=== PATIENT | female | born 1990 | race Caucasian/White ===

== ENCOUNTER 2020-03-05 08:22 | Outpatient (REF) | payer OTHER, SELFPAY ==
[2020-03-05 11:14] LABS: MANUAL DIFF FLAG NO
[2020-03-05 11:21] LABS: Basophils Percent Auto 0.4 % (0-2); Eosinophils Absolute Auto 0.1 X10*3/uL (0.0-0.4); Eosinophils Percent Auto 1.5 % (0-4); Hemoglobin 14.2 g/dl (12.0-16.0); Imm Gran Abs Auto 0.01 X10*3/uL (0.00-0.03); Imm Gran Pct Auto 0.2 % (0.0-0.4); Lymphocytes Absolute Auto 2.2 X10*3/uL (1.2-4.9); Lymphocytes Percent Auto 39.4 % (20-40); Mean Corpuscular HGB Conc 32.3 g/dl (31.0-35.0); Mean Corpuscular Hemoglobin 28.5 pg (27.0-33.0); Mean Corpuscular Volume 88.2 fL (80-98); Monocytes Absolute Auto 0.4 X10*3/uL (0.1-1.2); Neutrophils Absolute Auto 2.8 X10*3/uL (2.0-8.3); Neutrophils Percent Auto 50.5 % (45-73); Platelet Count 344 X10*3/uL (160-400); Red Blood Count 4.99 X10*6/uL (4.20-5.50); Red Cell Distribution Width 11.9 % (11.0-16.0); White Blood Count 5.5 X10*3/uL (4.8-10.8)
[2020-03-05 11:46] LABS: Anion Gap 12 (12-20); Blood Urea Nitrogen 13 mg/dL (9-16); Calcium 9.1 mg/dL (8.4-10.2); Carbon Dioxide 28 mmol/L (22-29); Chloride 105 mmol/L (96-108); Cholesterol 232 mg/dL; Estimated Glomerular Filt Rate > 60; Glucose Fasting 79 mg/dL (60-99); HDL Cholesterol 53 mg/dL; LDL Cholesterol Calculated 155 mg/dl; Potassium 4.2 mmol/l (3.3-5.1); Sodium 141 mmol/L (135-145); Triglycerides 120 mg/dL
[2020-03-05 12:08] LABS: TSH reflex Free T4 5.13 mIU/mL (0.32-4.0)
== END 2020-03-05 08:23 | disposition home or self-care (01) ==
LOC: HO.HMGCLDS 08:22
PROVIDERS: PCP Internal Medicine; Visit Provider Internal Medicine
DX: E66.9 Obesity, unspecified (principal)
CPT/HCPCS: 36415; 80048; 80061; 84439; 84443; 85025

== ENCOUNTER 2020-05-12 15:18 | Outpatient (REF) | payer OTHER, SELFPAY ==
[2020-05-12 17:18] LABS: TSH reflex Free T4 3.02 uIU/mL (0.32-4.0)
== END 2020-05-12 15:19 | disposition home or self-care (01) ==
LOC: HO.HMGCLDS 15:18
PROVIDERS: PCP Internal Medicine; Visit Provider Internal Medicine
DX: R79.89 Other specified abnormal findings of blood chemistry (principal)
CPT/HCPCS: 36415; 84443

== ENCOUNTER 2021-01-05 | Outpatient (REF) | payer BC, OTHER, SELFPAY ==
[2021-01-06 13:34] LABS: Influenza A PCR NEGATIVE (Negative); Influenza B PCR NEGATIVE (Negative); Resp Syncy Virus RNA Qual PCR NEGATIVE (Negative); SARS COV2 PCR INHOUSE NEGATIVE (Negative)
== END 2021-01-05 00:01 | disposition home or self-care (01) ==
LOC: HO.LNP
PROVIDERS: Visit Provider Internal Medicine
DX: R43.9 Unspecified disturbances of smell and taste (principal); Z20.822 Contact with and (suspected) exposure to COVID-19
CPT/HCPCS: 0241U

== ENCOUNTER 2021-05-14 11:26 | Outpatient (REF) | payer BC, OTHER, SELFPAY ==
[2021-05-14 13:39] LABS: MANUAL DIFF FLAG NO
[2021-05-14 13:49] LABS: Basophils Percent Auto 0.3 % (0-2); Eosinophils Percent Auto 0.5 % (0-4); Hematocrit 42.3 % (37.0-47.0); Imm Gran Abs Auto 0.01 X10*3/uL (0.00-0.03); Imm Gran Pct Auto 0.1 % (0.0-0.4); Lymphocytes Absolute Auto 1.7 X10*3/uL (1.2-4.9); Lymphocytes Percent Auto 21.8 % (20-40); Mean Corpuscular HGB Conc 33.1 g/dl (31.0-35.0); Mean Corpuscular Hemoglobin 28.9 pg (27.0-33.0); Mean Corpuscular Volume 87.4 fL (80.0-98.0); Mean Platelet Volume 9.3 fL (9.4-12.3); Monocytes Absolute Auto 0.5 X10*3/uL (0.1-1.2); Monocytes Percent Auto 6.3 % (2-11); Neutrophils Absolute Auto 5.5 x10*3/uL (2.0-8.3); Platelet Count 335 X10*3/uL (160-400); Red Blood Count 4.84 X10*6/uL (4.20-5.50); Red Cell Distribution Width 11.9 % (11.0-16.0); White Blood Count 7.8 X10*3/uL (4.8-10.8)
[2021-05-14 14:03] LABS: Alanine Aminotransferase 16 U/L (0-31); Albumin Level 4.2 g/dL (3.5-5.0); Alkaline Phosphatase 62 U/L (39-117); Anion Gap 9 (12-20); Aspartate Amino Transferase 20 U/L (5-31); Bilirubin Total 0.6 mg/dL (0.0-1.0); Blood Urea Nitrogen 10 mg/dL (9-16); Calcium 9.6 mg/dL (8.4-10.2); Carbon Dioxide 30 mmol/L (22-29); Chloride 104 mmol/L (96-108); Estimated Glomerular Filt Rate > 60; Glucose Random 80 mg/dL (60-115); Potassium 4.3 mmol/L (3.3-5.1); Sodium 139 mmol/L (135-145); Total Protein 6.7 g/dL (6.5-8.0)
[2021-05-14 14:25] LABS: TSH reflex Free T4 2.66 uIU/mL (0.32-4.0)
[2021-05-15 16:20] LABS: LDL Cholesterol Direct 131 mg/dL (<100)
== END 2021-05-14 11:27 | disposition home or self-care (01) ==
LOC: HO.HMGCLDS 11:26
PROVIDERS: Visit Provider Internal Medicine
DX: Z00.01 Encounter for general adult medical examination with abnormal findings (principal); E66.09 Other obesity due to excess calories
CPT/HCPCS: 36415; 80053; 83721; 84443; 85025

== ENCOUNTER 2021-11-26 10:36 | Outpatient (REF) | payer BC, MEDICAID, SELFPAY ==
[2021-11-26 11:25] LABS: Binax Internal Control QC Valid; Binax Now Covid-19 Ag Negative (Negative); Binax Performed by: HO.BONILM
== END 2021-11-26 10:37 | disposition home or self-care (01) ==
LOC: HO.HMGCLDS 10:36
PROVIDERS: PCP Internal Medicine; Visit Provider Emergency Medicine
DX: Z20.822 Contact with and (suspected) exposure to COVID-19 (principal); J06.9 Acute upper respiratory infection, unspecified
CPT/HCPCS: 87811; C9803

== ENCOUNTER 2022-05-21 08:00 | Outpatient (REF) | payer BC, SELFPAY ==
[2022-05-21 11:09] LABS: MANUAL DIFF FLAG NO
[2022-05-21 11:16] LABS: Basophils Percent Auto 0.4 % (0-2); Eosinophils Absolute Auto 0.1 X10*3/uL (0.0-0.4); Eosinophils Percent Auto 1.3 % (0-4); Hematocrit 42.6 % (37.0-47.0); Hemoglobin 14.2 g/dl (12.0-16.0); Imm Gran Abs Auto 0.01 X10*3/uL (0.00-0.03); Imm Gran Pct Auto 0.2 % (0.0-0.4); Lymphocytes Absolute Auto 1.7 X10*3/uL (1.2-4.9); Lymphocytes Percent Auto 30.7 % (20-40); Mean Corpuscular HGB Conc 33.3 g/dl (31.0-35.0); Mean Corpuscular Hemoglobin 28.5 pg (27.0-33.0); Mean Corpuscular Volume 85.5 fL (80.0-98.0); Mean Platelet Volume 9.1 fL (9.4-12.3); Monocytes Absolute Auto 0.4 X10*3/uL (0.1-1.2); Monocytes Percent Auto 7.2 % (2-11); Neutrophils Absolute Auto 3.3 x10*3/uL (2.0-8.3); Neutrophils Percent Auto 60.2 % (45-73); Platelet Count 307 X10*3/uL (160-400); Red Blood Count 4.98 X10*6/uL (4.20-5.50); White Blood Count 5.5 X10*3/uL (4.8-10.8)
[2022-05-21 11:48] LABS: Alanine Aminotransferase 22 U/L (0-31); Albumin Level 4.1 g/dL (3.5-5.0); Alkaline Phosphatase 62 U/L (39-117); Anion Gap 11 (12-20); Aspartate Amino Transferase 20 U/L (5-31); Bilirubin Total 0.7 mg/dL (0.0-1.0); Blood Urea Nitrogen 9 mg/dL (9-16); Calcium 9.3 mg/dL (8.4-10.2); Carbon Dioxide 27 mmol/L (22-29); Chloride 106 mmol/L (96-108); Cholesterol 206 mg/dL; Estimated Glomerular Filt Rate > 60; Glucose Fasting 80 mg/dL (60-99); HDL Cholesterol 58 mg/dL; LDL Cholesterol Calculated 136 mg/dl; Potassium 4.4 mmol/L (3.3-5.1); Sodium 140 mmol/L (135-145); TSH reflex Free T4 7.32 uIU/mL (0.32-4.0); Total Protein 6.3 g/dL (6.5-8.0); Triglycerides 61 mg/dL
[2022-05-21 12:30] LABS: Free T4 (Free Thyroxine) 0.74 ng/dL (0.71-1.85)
== END 2022-05-21 08:01 | disposition home or self-care (01) ==
LOC: HO.HMGCLDS 08:00
PROVIDERS: PCP Internal Medicine; Visit Provider Internal Medicine
DX: Z00.01 Encounter for general adult medical examination with abnormal findings (principal); R07.89 Other chest pain; F43.9 Reaction to severe stress, unspecified; E66.09 Other obesity due to excess calories; R94.6 Abnormal results of thyroid function studies
CPT/HCPCS: 36415; 80053; 80061; 84439; 84443; 85025

== ENCOUNTER 2022-05-28 07:58 | Outpatient (REF) | payer BC, SELFPAY ==
[2022-05-28 11:52] LABS: TSH reflex Free T4 7.75 uIU/mL (0.32-4.0)
[2022-05-28 12:38] LABS: Free T4 (Free Thyroxine) 0.77 ng/dL (0.71-1.85)
== END 2022-05-28 07:59 | disposition home or self-care (01) ==
LOC: HO.HMGCLDS 07:58
PROVIDERS: PCP Internal Medicine; Visit Provider Internal Medicine
DX: R79.89 Other specified abnormal findings of blood chemistry (principal); R94.6 Abnormal results of thyroid function studies
CPT/HCPCS: 36415; 84439; 84443

== ENCOUNTER 2022-06-07 13:01 | Outpatient (REF) | payer BC, SELFPAY ==
--- NOTE | ~2022-06-07 | US_ITS ---
EXAMINATION: US THYROID CLINICAL INFORMATION: High TSH level. COMPARISON: None available. TECHNIQUE: Linear transducer grayscale and color Doppler examination with attention to the region of the thyroid. FINDINGS: SIZE: Measurements of the thyroid lobes and nodules are given in sagittal, anteroposterior and transverse dimensions respectively. Right Thyroid Lobe: 5.3 x 1.8 x 1.7 cm, volume 8.5 mL. Parenchyma: The gland echotexture is heterogeneous. Thyroid vascularity is normal. Left Thyroid Lobe: 3.4 x 1.3 x 1.3 cm, volume 3.0 mL. Parenchyma: The gland echotexture is heterogeneous. Thyroid vascularity is increased. Isthmus: 0.4 cm in maximum AP dimension. No focal thyroid nodule is seen. NODES: No lymphadenopathy is seen in the tissue surrounding the thyroid gland. US/US thyroid IMPRESSION: Heterogeneous thyroid gland without enlargement. No nodules seen. ACR TI-RADS RECOMMENDATION REFERENCE: Ultrasound-guided fine-needle aspiration, followup ultrasound, no further follow up. * TR1 (0 point) and TR2 (2 points): No FNA or follow up. * TR3 (3 points): FNA if more than or equal to 2.5 cm in maximum dimension, followup ultrasound in 1, 3 and 5 years if 1.5 to 2.4 cm in maximum dimension. * TR4 (4-6 points): FNA if more than or equal to 1.5 cm in maximum dimension, followup ultrasound in 1, 2, 3 and 5 years if 1 to 1.4 cm in maximum dimension. * TR5 (more than or equal to 7 points): FNA if more than or equal to 1 cm in maximum dimension, followup ultrasound every year for 5 years if 0.5 to 0.9 cm in maximum dimension. * TR3, TR4 or TR5 nodules that are below the size threshold for followup receive no follow up.
== END 2022-06-07 13:02 | disposition home or self-care (01) ==
LOC: HO.HMGCX 13:01
PROVIDERS: PCP Internal Medicine; Visit Provider Internal Medicine
DX: R79.89 Other specified abnormal findings of blood chemistry (principal)
CPT/HCPCS: 76536

== ENCOUNTER 2022-07-30 07:37 | Outpatient (REF) | payer BC, MEDICAID, SELFPAY ==
[2022-07-30 11:18] LABS: TSH reflex Free T4 2.99 uIU/mL (0.32-4.0)
[2022-08-02 17:44] LABS: Thyroglobulin Antibodies <1 IU/mL (< or = 1)
== END 2022-07-30 07:38 | disposition home or self-care (01) ==
LOC: HO.HMGCLDS 07:37
PROVIDERS: PCP Internal Medicine; Visit Provider Internal Medicine
DX: R94.6 Abnormal results of thyroid function studies (principal)
CPT/HCPCS: 36415; 84443; 86800

== ENCOUNTER 2022-12-01 08:16 | Outpatient (AMB) | payer BC, MEDICAID, SELFPAY ==
--- NOTE | 2022-12-01 08:15 | A.OFFPC_ITS ---
Intake Visit Reasons: Follow Up Med~ Allergies cefaclor [From [facility]] Allergy (Intermediate, Verified 12/01/22 08:15) DIARRHEA Medication List - Last Reconciled 12/01/22 by Sarah Geiger MD acetaminophen (Tylenol) liquid cholecalciferol (vitamin D3) (Vitamin D3) 25 mcg PO DAILY 30 days levothyroxine (Synthroid) 50 mcg PO DAILY [id number]-gnf-gcd C-herb no.124 (Airborne (ascorbic acid)) PO DAILY multivitamin (Daily Multi-Vitamin tablet) 1 tab PO DAILY [id number] 334-1.7 mg (Airborne (ascorbate sodium)) tabs PO Tobacco use date assessed: 12/01/22 Dental Screening Dental Screen Date: 12/01/22 Did you have a dental visit in the last 12 months?: No Did you have a dental problem in the last 6 months where you did not have access to dental care?: No Was dental information given to patient?: Patient has dentist HPI Follow Up Med~ HPI Details Patient is 32-year-old female this is a telemedicine video conference Patient was last seen May this year, she has hypothyroidism She called us that she feels medication is causing nausea. Patient tells me that when she takes a medication in the morning with the bit of water she feels nauseous for her an hour. She also have GERD and is taking no medication. Patient says that she sometimes also feel dyspepsia. Has been feeling depressed lately, feeling tired fatigued have no will to do anything. Patient is seeing therapist but does not feel like talking to therapist as well. She does not want to take any medication, patient says that she feels she will be all right. I have sent omeprazole for the patient she is to start taking that 1 at night 1 empty stomach. She is also due for labs, I will be checking CBC metabolic profile TSH, vitamin- D B12 level. For the management after the lab report. Patient says that she is losing her insurance in 2 days. She will let me know when she have a new insurance so we can set up a follow-up appointment. [facility] Medical History Obesity Surgical History History of lumpectomy Family History Father HTN (hypertension) Asthma Mother No problems noted. Maternal Grandfather Cancer Other Substance use disorder Social History Housing: House Alcohol intake: never Patient Tobacco Use Status: Never used Tobacco e-Cigarette/Vaping Use: Never Used Second Hand Smoke Exposure: No Current occupational status: employed Cognitive needs: No Hearing needs: No Vision needs: No Questionnaire Thrive Questionnaire Date Thrive assessed: 05/20/22 AUDIT C Alcohol Use Questionnaire (AUDIT-C) 1. How often do you have a drink containing alcohol?: Never 3. How often do you have six or more drinks on one occasion?: Never Total Score: 0 Score Reviewed/Action Taken: Yes ALEX-7 AMB Questionnaire ALEX-7 Date ALEX - 7 assessed: 05/20/22 Source: Developed by Drs. Juvenal Suarez, Ofelia Fuentes, Simba Powers and colleagues, with an educational harika from [employer]. Review of Systems Const Denies chills and Denies fever(s) ENT Denies epistaxis and Denies nasal discharge Card Denies chest pain Resp Denies chest congestion, Denies cough and Denies hemoptysis GI Denies diarrhea Skin/Breast Denies rash Neuro Reports no additional complaints Psych Reports no additional complaints Endo Reports no additional complaints Physical exam (Primary Care) Tobacco/Smoking Status: Tobacco use Status Tobacco use date assessed 12/01/22 12/01/22 08:16 Patient Tobacco Use Status Never used Tobacco 12/01/22 08:16 e-Cigarette/Vaping Use Never Used 12/01/22 08:16 Thrive Assessment: Date of Thrive Assessment Date Thrive assessed 05/20/22 12/01/22 08:16 Telehealth Telehealth Location of provider rendering services: practice address Location of patient: address on file Patient Identification confirmed using: Name, : Yes Telehealth method: video Patient verbally consented to treatment: Yes Patient verbally consented to billing insurance company: Yes Patient informed of any privacy concerns related to visit: Yes Assessment and Plan Assessment & Plan (1) Other specified hypothyroidism: Code(s): E03.8 - Other specified hypothyroidism (2) Tired: Code(s): R53.83 - Other fatigue (3) Fatigue: Code(s): R53.83 - Other fatigue Qualifiers: Fatigue type: due to depression Qualified Code(s): F32.A - Depression, unspecified; R53.83 - Other fatigue (4) Major depressive disorder, recurrent, mild: Code(s): F33.0 - Major depressive disorder, recurrent, mild Plan Patient is 32-year-old female this is a telemedicine video conference Patient was last seen May this year, she has hypothyroidism She called us that she feels medication is causing nausea. Patient tells me that when she takes a medication in the morning with the bit of water she feels nauseous for her an hour. She also have GERD and is taking no medication. Patient says that she sometimes also feel dyspepsia. Has been feeling depressed lately, feeling tired fatigued have no will to do anything. Patient is seeing therapist but does not feel like talking to therapist as well. She does not want to take any medication, patient says that she feels she will be all right. I have sent omeprazole for the patient she is to start taking that 1 at night 1 empty stomach. She is also due for labs, I will be checking CBC metabolic profile TSH, vitamin- D B12 level. For the management after the lab report. Patient says that she is losing her insurance in 2 days. She will let me know when she have a new insurance so we can set up a follow-up appointment. Orders: Orders Complete Blood Count Auto Diff Today E03.8 - Other specified hypothyroidism, F33.0 - Major depressive disorder, recurrent, mild, R53.83 - Other fatigue Comprehensive Met. Panel Today E03.8 - Other specified hypothyroidism, F33.0 - Major depressive disorder, recurrent, mild, R53.83 - Other fatigue TSH reflex Free T4 Today E03.8 - Other specified hypothyroidism, F33.0 - Major depressive disorder, recurrent, mild, R53.83 - Other fatigue Vitamin B12 Today E03.8 - Other specified hypothyroidism, F33.0 - Major depressive disorder, recurrent, mild, R53.83 - Other fatigue Vitamin D 25-OH (D2 and D3) Today E03.8 - Other specified hypothyroidism, F33.0 - Major depressive disorder, recurrent, mild, R53.83 - Other fatigue Coding Level of Care Code Tele Est Pt Level 4 (84054) Diagnoses Other specified hypothyroidism E03.8 Tired R53.83 Fatigue due to depression F32.A; R53.83 Fatigue type: due to depression Major depressive disorder, recurrent, mild F33.0 Time Spent (min) 30 Comment 5 min prep, 15 with patient, 10 charting, labs
== END 2022-12-01 10:22 | disposition home or self-care (01) ==
LOC: HO.HMGC 08:16
PROVIDERS: PCP Internal Medicine; Visit Provider Internal Medicine
DX: E03.8 Other specified hypothyroidism (principal); R53.83 Other fatigue; F33.0 Major depressive disorder, recurrent, mild
CPT/HCPCS: 99214

== ENCOUNTER 2022-12-01 09:43 | Outpatient (REF) | payer BC, MEDICAID, SELFPAY ==
[2022-12-01 13:21] LABS: MANUAL DIFF FLAG NO
[2022-12-01 13:30] LABS: Basophils Percent Auto 0.6 % (0-2); Eosinophils Absolute Auto 0.1 X10*3/uL (0.0-0.4); Eosinophils Percent Auto 0.9 % (0-4); Hematocrit 44.6 % (37.0-47.0); Hemoglobin 14.7 g/dl (12.0-16.0); Imm Gran Abs Auto 0.01 X10*3/uL (0.00-0.03); Imm Gran Pct Auto 0.2 % (0.0-0.4); Lymphocytes Absolute Auto 1.6 X10*3/uL (1.2-4.9); Lymphocytes Percent Auto 29.6 % (20-40); Mean Corpuscular Hemoglobin 28.8 pg (27.0-33.0); Mean Corpuscular Volume 87.5 fL (80.0-98.0); Mean Platelet Volume 9.2 fL (9.4-12.3); Monocytes Absolute Auto 0.4 X10*3/uL (0.1-1.2); Monocytes Percent Auto 7.1 % (2-11); Neutrophils Absolute Auto 3.3 x10*3/uL (2.0-8.3); Neutrophils Percent Auto 61.6 % (45-73); Platelet Count 339 X10*3/uL (160-400); Red Cell Distribution Width 11.9 % (11.0-16.0); White Blood Count 5.4 X10*3/uL (4.8-10.8)
[2022-12-01 14:06] LABS: Alanine Aminotransferase 20 U/L (0-31); Albumin Level 4.4 g/dL (3.5-5.0); Alkaline Phosphatase 56 U/L (39-117); Anion Gap 14 (12-20); Aspartate Amino Transferase 21 U/L (5-31); Bilirubin Total 0.5 mg/dL (0.0-1.0); Blood Urea Nitrogen 9 mg/dL (9-16); Carbon Dioxide 27 mmol/L (22-29); Chloride 105 mmol/L (96-108); Estimated Glomerular Filt Rate > 60; Glucose Random 75 mg/dL (60-115); Sodium 142 mmol/L (135-145); Total Protein 7.3 g/dL (6.5-8.0)
[2022-12-01 14:23] LABS: TSH reflex Free T4 2.18 uIU/mL (0.32-4.0)
[2022-12-01 14:26] LABS: Vitamin B12 449 pg/mL (200-900)
[2022-12-06 14:24] LABS: Vitamin D 25-OH, D2 <4 ng/mL; Vitamin D 25-OH, D3 33 ng/mL; Vitamin D 25-OH, Total 33 ng/mL (30-100)
== END 2022-12-01 09:44 | disposition home or self-care (01) ==
LOC: HO.HMGCLDS 09:43
PROVIDERS: PCP Internal Medicine; Visit Provider Internal Medicine
DX: E03.8 Other specified hypothyroidism (principal); F33.0 Major depressive disorder, recurrent, mild
CPT/HCPCS: 36415; 80053; 82306; 82607; 84443; 85025

== ENCOUNTER 2023-05-26 09:49 | Outpatient (AMB) | payer OTHER, SELFPAY ==
--- NOTE | 2023-05-26 09:51 | MHC.PC.OV ---
Vital Signs 05/26/23 09:55 Height 5 ft 1 in Weight 194 lb 2 oz BMI 36.7 BP 122/78 Blood Pressure Location Lt brachial Position Sitting Pulse 98 Pulse Source Pulse Oximeter Pulse Oximetry (%) 98 Oxygen Delivery Method Room Air Intake Visit Reasons: Annual Physical Is last menstrual period known: Yes Last menstrual period: 05/08/23 Allergies cefaclor [From CECL[facility]] Allergy (Intermediate, Verified 05/26/23 09:51) DIARRHEA Medication List - Last Reconciled 05/26/23 by Sarah Geiger MD acetaminophen (Tylenol) liquid cholecalciferol (vitamin D3) (Vitamin D3) 25 mcg PO DAILY levothyroxine (Synthroid) 50 mcg PO DAILY [id number]-wox-dww C-herb no.124 (Airborne (ascorbic acid)) PO DAILY multivitamin (Daily Multi-Vitamin tablet) 1 tab PO DAILY rn-to-plgF-rxiWr-Qto-Crz-hc124 334-1.7 mg (Airborne (ascorbate sodium)) tabs PO Tobacco use date assessed: 05/26/23 Dental Screening Dental Screen Date: 05/26/23 Did you have a dental visit in the last 12 months?: Yes Did you have a dental problem in the last 6 months where you did not have access to dental care?: No Was dental information given to patient?: Patient has dentist HPI Annual Physical HPI Details Patient is a 32-year-old female came in for physical examination Patient is complaining of pain both side midline, she says that mattress is very old which was handed to from grandparent, she has a suspicion that it is because of that Discomfort is only at night when she is sleeping sometimes wakes her up from sleep. During the day she is fine No family history of kidney stone Omeprazole script sent that she is using for GERD Patient is also on 50 mcg of levothyroxine, she is due for labs order placed to be done fasting BMI is elevated need to lose weight Patient have OBGYN Pap smears and breast exam through them. Follow-up 1 year for physical exam [facility] Medical History Obesity Surgical History History of lumpectomy Family History Father HTN (hypertension) Asthma Mother No problems noted. Maternal Grandfather Cancer Other Substance use disorder Social History Housing: House Alcohol intake: never Patient Tobacco Use Status: Never used Tobacco e-Cigarette/Vaping Use: Never Used Second Hand Smoke Exposure: No Current occupational status: employed Cognitive needs: No Hearing needs: No Vision needs: No Female Reproductive History Menstrual Date of last menstrual period: 05/08/23 Questionnaire PHQ-9 Over the last 2 weeks, how often have you been bothered by any of the following problems? 1. Little interest or pleasure in doing things: not at all 2. Feeling down, depressed, or hopeless: several days 3. Trouble falling or staying asleep, or sleeping too much: not at all 4. Feeling tired or having little energy: several days 5. Poor appetite or overeating: several days 6. Feeling bad about yourself - or that you are a failure or have let yourself or your family down: not at all 7. Trouble concentrating on things, such as reading the newspaper or watching television: not at all 8. Moving or speaking so slowly that other people could have noticed. Or the opposite - being so fidgety or restless that you have been moving around a lot more than usual: not at all 9. Thoughts that you would be better off or of hurting yourself in some way: not at all Total score: 3 Depression Screening Interpretation: Negative Depression Screening Done: Yes 46394 - PHQ-9 Billing: Yes Source: Developed by Drs. Juvenal Suarez, Ofelia Fuentes, Simba Powers and colleagues, with an educational harika from [employer]. Thrive Questionnaire Date Thrive assessed: 05/20/22 I am a: Patient What is your living situation today?: I have a steady place to live Within the past 12 months, did the food you bought not last and you didn't have the money to get more?: Never true Within the past 12 months, did you worry whether your food would run out before you got money to buy more?: Never true Please select the resources that you would like help with: Education THRIVE Score: 0 AUDIT C Alcohol Use Questionnaire (AUDIT-C) 1. How often do you have a drink containing alcohol?: Monthly or less 2. How many drinks containing alcohol do you have on a typical day when you are drinking?: 1 or 2 3. How often do you have six or more drinks on one occasion?: Never Total Score: 1 ALEX-7 AMB Questionnaire ALEX-7 Date ALEX - 7 assessed: 05/20/22 Feeling nervous, anxious, or on edge: 1 = Several days Not being able to stop or control worryin = Nearly every day Worrying too much about different things: 1 = Several days Trouble relaxin = Several days Being so restless that it is hard to sit still: 0 = Not at all Becoming easily annoyed or irritable: 1 = Several days Feeling afraid as if something awful might happen: 1 = Several days Total ALEX-7 score (0-4 normal; 5-9 mild; 10-14 moderate; 15-21 severe): 8 Source: Developed by Drs. Juvenal Suarez, Ofelia Fuentes, Simba Powers and colleagues, with an educational harika from [employer]. ALEX-7 Assessment Billing ALEX-7 Assessment Tool: ALEX-7 Assessment 82345 (Behavioral health coordinator to follow up) Review of Systems Const Denies chills, Denies fever(s) and Denies headache(s) Eyes Denies blurry vision ENT Denies headache(s), Denies nasal discharge, Denies nasal obstruction, Denies odynophagia and Denies sinus pain Card Denies chest pain at rest and Denies chest pain with activity Resp Denies cough and Denies hemoptysis GI Denies diarrhea, Denies odynophagia, Denies vomiting and Denies hematemesis Reports as per HPI Musc Denies abnormal gait Skin/Breast Reports as per HPI Neuro Denies Neuro-related abnormal movements, Denies Abnormal speech present, Denies abnormal gait, Denies headache(s) and Denies Sensory deficit (Neuro) Psych Denies mood swings and Denies paranoia Endo Reports as per HPI Joseph/Lymph Reports as per HPI Aller/Immun Reports as per HPI Physical exam (Primary Care) Vital Signs: Last Vital Signs Pulse 98 05/26/23 09:55 BP 122/78 05/26/23 09:55 Pulse Ox 98 05/26/23 09:55 Oxygen Delivery Method Room Air 05/26/23 09:55 BMI result Body Mass Index 36.7 Tobacco/Smoking Status: Tobacco use Status Tobacco use date assessed 05/26/23 05/26/23 09:53 Patient Tobacco Use Status Never used Tobacco 05/26/23 09:53 e-Cigarette/Vaping Use Never Used 05/26/23 09:53 Depression Screening Interpretation: Negative Thrive Assessment: Date of Thrive Assessment Date Thrive assessed 05/20/22 05/26/23 09:53 Const General: cooperative, comfortable and no acute distress Orientation/consciousness: patient oriented x3 HENMT Head: Yes normocephalic and Yes atraumatic Eyes General: appearance normal, both eyes and all related structures Pupils: Equal, round and reactive pupils present EOM: EOMs intact bilaterally Neck Neck: Yes supple and No lymphadenopathy Thyroid: Thyroid normal Lymphatic: no lymphadenopathy noted Resp Effort & Inspection: normal respiratory effort and able to speak in complete sentences Auscultation: clear to auscultation bilaterally Cardio Heart sounds: S1 normal heart sound present and S2 normal heart sound present GI Palpation (GI): Soft to palpation and nontender Auscultation: normal bowel sounds General: Yes no CVA tenderness Back/Spine/Pelvis Back: no CVA tenderness Skin General skin exam: elasticity normal and turgor normal Neuro General: patient oriented x3 and gait normal Cranial nerves: Yes Equal, round and reactive pupils present Speech: No Abnormal speech present Sensory Exam: No Sensory deficit (Neuro) Coordination: tandem gait normal and Romberg test negative Extrem General: Yes normal exam except as noted and No edema Assessment and Plan Assessment & Plan (1) Encounter for general adult medical examination with abnormal findings: Code(s): Z00.01 - Encounter for general adult medical examination with abnormal findings (2) Obesity due to excess calories: Code(s): E66.09 - Other obesity due to excess calories Qualifiers: Body mass index: BMI 36.0-36.9 Obesity classification: adult class 2 (BMI 35 - 39.9) Serious obesity comorbidity presence: without serious comorbidity Qualified Code(s): E66.09 - Other obesity due to excess calories; Z68.36 - Body mass index [BMI] 36.0-36.9, adult (3) Other specified hypothyroidism: Code(s): E03.8 - Other specified hypothyroidism Plan Patient is a 32-year-old female came in for physical examination Patient is complaining of pain both side midline, she says that mattress is very old which was handed to from grandparent, she has a suspicion that it is because of that Discomfort is only at night when she is sleeping sometimes wakes her up from sleep. During the day she is fine No family history of kidney stone Omeprazole script sent that she is using for GERD Patient is also on 50 mcg of levothyroxine, she is due for labs order placed to be done fasting BMI is elevated need to lose weight Patient have OBGYN Pap smears and breast exam through them. Follow-up 1 year for physical exam Orders: Orders Complete Blood Count Auto Diff Today E03.8 - Other specified hypothyroidism, E66.09 - Other obesity due to excess calories, Z00.01 - Encounter for general adult medical examination with abnormal findings TSH reflex Free T4 Today E03.8 - Other specified hypothyroidism, E66.09 - Other obesity due to excess calories, Z00.01 - Encounter for general adult medical examination with abnormal findings Comprehensive [place]. Panel Fast Today E03.8 - Other specified hypothyroidism, E66.09 - Other obesity due to excess calories, Z00.01 - Encounter for general adult medical examination with abnormal findings Lipid Panel Today E03.8 - Other specified hypothyroidism, E66.09 - Other obesity due to excess calories, Z00.01 - Encounter for general adult medical examination with abnormal findings UA CC w/rflx Micro + Cult Today Z00.01 - Encounter for general adult medical examination with abnormal findings Medications: New omeprazole 20 mg PO DAILY 90 caps 1RF Refilled levothyroxine (Synthroid) 50 mcg PO DAILY 90 tabs 3RF Coding Level of Care Code Est Pt Prev Care 18-39y(98439) Diagnoses Encounter for general adult medical examination with abnormal findings Z00.01 Class 2 obesity due to excess calories without serious comorbidity with body mass index (BMI) of 36.0 to 36.9 in adult E66.09; Z68.36 Body mass index: BMI 36.0-36.9 Obesity classification: adult class 2 (BMI 35 - 39.9) Serious obesity comorbidity presence: without serious comorbidity Other specified hypothyroidism E03.8 Additional Codes ALEX-7 Assessment Billing - ALEX-7 Assessment Tool: ALEX-7 Assessment [id number] ([id number])
[2023-05-26 09:55] VITALS: BP 122/78; PULSE 98; O2SAT 98; BMI 36.7
== END 2023-05-26 10:11 | disposition home or self-care (01) ==
PROVIDERS: Visit Provider Internal Medicine
DX: Z00.01 Encounter for general adult medical examination with abnormal findings (principal); E66.09 Other obesity due to excess calories; Z68.36 Body mass index [BMI] 36.0-36.9, adult; E03.8 Other specified hypothyroidism
CPT/HCPCS: 99395

== ENCOUNTER 2023-05-27 07:32 | Outpatient (REF) | payer OTHER, SELFPAY ==
[2023-05-27 11:12] LABS: MANUAL DIFF FLAG NO
[2023-05-27 11:23] LABS: Basophils Percent Auto 0.3 % (0-2); Eosinophils Absolute Auto 0.1 X10*3/uL (0.0-0.4); Eosinophils Percent Auto 1.4 % (0-4); Hematocrit 42.9 % (37.0-47.0); Hemoglobin 14.5 g/dl (12.0-16.0); Imm Gran Abs Auto 0.03 X10*3/uL (0.00-0.03); Imm Gran Pct Auto 0.5 % (0.0-0.4); Lymphocytes Absolute Auto 1.8 X10*3/uL (1.2-4.9); Lymphocytes Percent Auto 27.8 % (20-40); Mean Corpuscular HGB Conc 33.8 g/dl (31.0-35.0); Mean Corpuscular Hemoglobin 29.2 pg (27.0-33.0); Mean Corpuscular Volume 86.5 fL (80.0-98.0); Mean Platelet Volume 9.1 fL (9.4-12.3); Monocytes Absolute Auto 0.5 X10*3/uL (0.1-1.2); Monocytes Percent Auto 7.2 % (2-11); Neutrophils Absolute Auto 4.1 x10*3/uL (2.0-8.3); Neutrophils Percent Auto 62.8 % (45-73); Platelet Count 331 X10*3/uL (160-400); Red Blood Count 4.96 X10*6/uL (4.20-5.50); White Blood Count 6.5 X10*3/uL (4.8-10.8)
[2023-05-27 11:28] LABS: Appearance Urine Clear; Color Urine Yellow; Glucose Urine UA Negative (Negative); Leukocyte Esterase Urine Moderate (2+) (Negative); Nitrite Urine Negative (Negative); Specific Gravity - Urine 1.015 (1.005-1.025); UMIC TRIGGER UACC YES; Urine Blood Negative (Negative); Urine Ketones Negative (Negative); Urine Protein Negative (Neg-Trace)
[2023-05-27 11:43] LABS: Bacteria Urine Trace (None Seen); Hyaline Casts Urine 0-2 /LPF (0-2); RBC Urine 0-2 /HPF (0-2); WBC Urine 0-5 /HPF (0-5)
[2023-05-27 11:48] LABS: Alanine Aminotransferase 16 U/L (0-31); Albumin Level 4.1 g/dL (3.5-5.0); Alkaline Phosphatase 64 U/L (39-117); Anion Gap 12 (12-20); Aspartate Amino Transferase 16 U/L (5-31); Bilirubin Total 0.4 mg/dL (0.0-1.0); Blood Urea Nitrogen 9 mg/dL (9-16); Calcium 9.1 mg/dL (8.4-10.2); Carbon Dioxide 23 mmol/L (22-29); Chloride 108 mmol/L (96-108); Cholesterol 192 mg/dL (<200); Estimated Glomerular Filt Rate > 60; Glucose Fasting 66 mg/dL (60-99); HDL Cholesterol 56 mg/dL (>40); LDL Cholesterol Calculated 121 mg/dL (<100); Potassium 3.7 mmol/L (3.3-5.1); Sodium 139 mmol/L (135-145); Triglycerides 77 mg/dL (<150)
[2023-05-27 11:55] LABS: TSH reflex Free T4 1.38 uIU/mL (0.32-4.0)
== END 2023-05-27 07:33 | disposition home or self-care (01) ==
LOC: HO.HMGCLDS 07:32
PROVIDERS: PCP Internal Medicine; Visit Provider Internal Medicine
DX: Z00.01 Encounter for general adult medical examination with abnormal findings (principal); E66.09 Other obesity due to excess calories; E03.8 Other specified hypothyroidism
CPT/HCPCS: 36415; 80053; 80061; 81001; 84443; 85025

== ENCOUNTER 2023-06-10 07:25 | Outpatient (REF) | payer OTHER, SELFPAY ==
[2023-06-10 11:07] LABS: Appearance Urine Cloudy; Color Urine Yellow; Glucose Urine UA Negative (Negative); Leukocyte Esterase Urine Small (1+) (Negative); Nitrite Urine Negative (Negative); PH 7.5 (5.0-9.0); UMIC TRIGGER UACC YES; Urine Blood Negative (Negative); Urine Ketones Negative (Negative); Urine Protein Negative (Neg-Trace)
[2023-06-10 11:18] LABS: Bacteria Urine Trace (None Seen); Hyaline Casts Urine 0-2 /LPF (0-2); RBC Urine 0-2 /HPF (0-2); UACC Culture Trigger YES; WBC Urine 0-5 /HPF (0-5)
== END 2023-06-10 07:26 | disposition home or self-care (01) ==
LOC: HO.HMGCLDS 07:25
PROVIDERS: PCP Internal Medicine; Visit Provider Internal Medicine
DX: R82.90 Unspecified abnormal findings in urine (principal); M54.9 Dorsalgia, unspecified
CPT/HCPCS: 81001; 87086

== ENCOUNTER 2023-06-17 09:18 | Outpatient (AMB) | payer OTHER, SELFPAY ==
--- NOTE | 2023-06-17 09:23 | AM.OFFWIN_ITS ---
Intake Vital Signs 06/17/23 09:24 Height 5 ft 1 in Weight 194 lb BMI 36.7 Pulse 95 Pulse Source Pulse Oximeter Temp 98.5 F Temp Source Oral Pulse Oximetry (%) 99 Oxygen Delivery Method Room Air Intake Visit Reasons: EP UTI throat ear pain (lobby) Intake Note: Pt is here today burning upon urination, lower abdominal pain, throat pain and Rt ear pain Patient Tobacco Use Status: Never used Tobacco Allergies cefaclor [From [facility]] Allergy (Intermediate, Verified 06/17/23 09:30) DIARRHEA HPI EP UTI throat ear pain (lobby) HPI Details Patient is a 32-year-old female comes to the walk-in clinic complaining of a few days of postnasal drip, mild sore throat, and feeling congested in the left ear. She reports no COVID testing. Rapid strep test negative in the office. No fever chills, nausea vomiting or diarrhea, dizziness or weakness, myalgias or malaise, shortness of breath or significant cough, or other significant associated symptoms. Patient also reports that she was recently treated for UTI, for which she did not have any obvious symptoms. After that course of antibiotics, she began to develop some vaginal irritation symptoms, that increased with urination. She denies , and no report of high-risk STDs. She also does not report pelvic pain, significant abdominal pain, flank or back pain (any longer), vaginal discharge or abnormal vaginal bleeding, or any symptoms as mentioned above. [facility] Medical History Obesity Surgical History History of lumpectomy Family History Father HTN (hypertension) Asthma Mother No problems noted. Maternal Grandfather Cancer Other Substance use disorder Social History Housing: House Alcohol intake: never Patient Tobacco Use Status: Never used Tobacco e-Cigarette/Vaping Use: Never Used Second Hand Smoke Exposure: No Current occupational status: employed Cognitive needs: No Hearing needs: No Vision needs: No Review of Systems Const All systems reviewed & are unremarkable except as noted in HPI and below Physical Exam Vital Signs: Last Vital Signs Temp 98.5 F 06/17/23 09:24 Pulse 95 06/17/23 09:24 Pulse Ox 99 06/17/23 09:24 Oxygen Delivery Method Room Air 06/17/23 09:24 BMI result Body Mass Index 36.7 Const General: cooperative, healthy appearing, comfortable, no acute distress, alert, awake, Physically active and well groomed; No anxious, diaphoretic, ill appearing, intoxicated appearing, poor hygiene or tired appearing Nutritional Appearance: average body habitus Orientation/consciousness: oriented to person Limitations: no limitations HEENT Head: Yes normal to inspection, Yes normocephalic and Yes atraumatic Ears: hearing grossly normal bilaterally, external ears normal, TM normal on the left, EAC's normal and TM abnormal (Clear) with fluid behind the TM; not bulging, not with effusion and not erythematous General nose exam: Normal external nose present, Normal nares present, No nasal polyps present, Normal nasal mucous membranes and turbinates present, Normal septum present and No nasal discharge present Face and sinus: Yes normal facial exam, Yes sinuses nontender and Yes face symmetric Mouth: Normal oral and palatal mucosa present, lip normal and tongue normal Throat: Yes posterior oropharynx normal, No peritonsillar mass, No postnasal drainage, No uvular edema and No cobblestoning Eyes General: appearance normal, both eyes and all related structures Neck Neck: Yes normal visual inspection, Yes no lymphadenopathy, Yes trachea midline, Yes supple and No anterior neck swelling Resp Effort & Inspection: normal respiratory effort, able to speak in complete sentences, no audible wheezes, no cough, no grunting, not labored, no nasal flaring, no retractions and symmetric chest movement Auscultation: clear to auscultation bilaterally, no crackles, no rales, no rhonchi, no wheezes, lung sounds not diminished and No rub present Cardio Rate: regular rate Neuro General: oriented to person Psych Appearance: grossly normal Mental Status: mental status grossly normal Speech and movement: Normal speech and movement present Affect: normal affect Attitude: cooperative Thought process: Normal thought process present Insight: Good insight present (Psych) Judgement: Good judgement present (Psych) Results AMB Urinalysis, Automated UA Leukoctes 0 Yusuf/uL Last Edit by Jeaneth Vallejo CMA on 06/17/23 09:48 UA Nitrite Negative Last Edit by Jeaneth Vallejo CMA on 06/17/23 09:48 UA Urobilinogen 0.2 mg/dL Last Edit by Jeaneth Vallejo CMA on 06/17/23 09:48 UA Protein 0 mg/dL Last Edit by Jeaneth Vallejo CMA on 06/17/23 09:48 UA pH 7.5 Last Edit by Jeaneth Vallejo CMA on 06/17/23 09:48 UA Blood 0 Sreedhar/uL Last Edit by Jeaneth Vallejo CMA on 06/17/23 09:48 UA Specific [place] 1.015 Last Edit by Jeaneth Vallejo CMA on 06/17/23 09:48 UA Ketone Negative Last Edit by Jeaneth Vallejo CMA on 06/17/23 09:48 UA Bilirubin 0 mg/dL Last Edit by Jeaneth Vallejo CMA on 06/17/23 09:48 UA Glucose 0 mg/dL Last Edit by Jeaneth Vallejo CMA on 06/17/23 09:48 AMB Rapid Strep AMB Rapid Strep Negative Last Edit by Jeaneth Vallejo CMA on 06/17/23 09:51 Results Reviewed Results Reviewed: Laboratory Last Values Urine pH (Auto) 7.5 06/17/23 09:47 Specific [place] (Auto) 1.015 06/17/23 09:47 Urine Protein (Auto) 0 mg/dL 06/17/23 09:47 Glucose (UA)(Auto) 0 mg/dL 06/17/23 09:47 Urine Ketones (Auto) Negative 06/17/23 09:47 Urine Blood (Auto) 0 Sreedhar/uL 06/17/23 09:47 Urine Nitrite (Auto) Negative 06/17/23 09:47 Urine Bilirubin (Auto) 0 mg/dL 06/17/23 09:47 Urine Urobilinogen (Auto) 0.2 mg/dL 06/17/23 09:47 Leukocyte Esterase (Auto) 0 Yusuf/uL 06/17/23 09:47 Strep Scn Rapid Clinic Negative 06/17/23 09:47 Assessment & Plan Assessment & Plan (1) Vaginitis: Code(s): N76.0 - Acute vaginitis Qualifiers: Chronicity: acute Qualified Code(s): N76.0 - Acute vaginitis Plan: Patient recently treated with antibiotics for UTI for which she did not have any obvious symptoms, and reports she has begun to develop some mild lower abdominal discomfort, and vaginal irritation symptoms, that increase with urination. No or high-risk of STDs reported. She denies vaginal discharge, pelvic pain, nausea vomiting or diarrhea, back or flank pain (any longer), fever or chills, weakness or dizziness, myalgias or malaise, or other systemic or associated symptoms. Pending results of vaginitis panel. She reports that she had been advised to see her in home caregiver, which I agreed with, if symptoms persist. (2) Upper respiratory tract infection: Code(s): J06.9 - Acute upper respiratory infection, unspecified Qualifiers: URI type: unspecified viral URI Qualified Code(s): J06.9 - Acute upper respiratory infection, unspecified Plan: Patient with mild URI symptoms. She reports no COVID testing. Rapid strep test negative in the office. No fever chills, nausea vomiting or diarrhea, dizziness or weakness, myalgias or malaise, shortness of breath or significant cough, or other significant associated symptoms. Pending testing to rule out flu COVID and RSV. We discussed continuing supportive measures, including heating the ear and taking an anti-inflammatory. She can follow up if symptoms persist or worsen. Orders: Orders AMB Urinalysis Automated Today Z13.9 - Encounter for screening, unspecified AMB Rapid Strep Screen Today Z13.9 - Encounter for screening, unspecified SARS-CoV2/FLU/RSV Today R05.9 - Cough, unspecified Bacterial Vaginosis Panel Today B96.89 - Other specified bacterial agents as the cause of diseases classified elsewhere, N76.0 - Acute vaginitis Coding Level of Care Code Est Pt Level 4 (90834) Diagnoses Acute vaginitis N76.0 Chronicity: acute Viral upper respiratory tract infection J06.9 URI type: unspecified viral URI
[2023-06-17 09:24] VITALS: PULSE 95; TEMP 36.9; O2SAT 99; BMI 36.7
== END 2023-06-17 10:29 | disposition home or self-care (01) ==
PROVIDERS: PCP Internal Medicine; Visit Provider Physician Assistant Medical
DX: N76.0 Acute vaginitis (principal); J06.9 Acute upper respiratory infection, unspecified; J02.9 Acute pharyngitis, unspecified
CPT/HCPCS: 81003; 87880; 99051; 99214

== ENCOUNTER 2023-06-17 09:47 | Outpatient (REF) | payer OTHER, SELFPAY ==
[2023-06-17 12:22] LABS: Influenza A PCR NEGATIVE (Negative); Influenza B PCR NEGATIVE (Negative); Resp Syncy Virus RNA Qual PCR NEGATIVE (Negative); SARS COV2 PCR INHOUSE NEGATIVE (Negative)
[2023-06-18 11:54] LABS: BV Int Neg Control Negative (Negative); BV Int Pos Control Positive (Positive)
== END 2023-06-17 09:48 | disposition home or self-care (01) ==
LOC: HO.LAB 09:47
PROVIDERS: Visit Provider Physician Assistant Medical
DX: N76.0 Acute vaginitis (principal); B96.89 Other specified bacterial agents as the cause of diseases classified elsewhere; R05.9 Cough, unspecified
CPT/HCPCS: 0241U; 87480; 87510; 87660

== ENCOUNTER 2023-07-04 08:55 | Outpatient (AMB) | payer OTHER, SELFPAY ==
[2023-07-04 08:57] VITALS: BP 126/84; PULSE 65; O2SAT 96; BMI 37.1
--- NOTE | 2023-07-04 08:57 | A.OFFPC_ITS ---
Vital Signs 07/04/23 08:57 Height 5 ft 1 in Weight 196 lb 8 oz BMI 37.1 BP 126/84 Blood Pressure Location Rt brachial Position Sitting Pulse 65 Pulse Source Pulse Oximeter Pulse Oximetry (%) 96 Oxygen Delivery Method Room Air Intake Visit Reasons: genital irritation/burning Allergies cefaclor [From [facility]] Allergy (Intermediate, Verified 07/04/23 08:57) DIARRHEA Medication List - Last Reconciled 07/04/23 by Sarah Geiger MD acetaminophen (Tylenol) liquid cholecalciferol (vitamin D3) (Vitamin D3) 25 mcg PO DAILY levothyroxine (Synthroid) 50 mcg PO DAILY owcnkmzj-dgv-suc C-herb no.124 (Airborne (ascorbic acid)) PO DAILY multivitamin (Daily Multi-Vitamin tablet) 1 tab PO DAILY [id number] 334-1.7 mg (Airborne (ascorbate sodium)) tabs PO omeprazole 20 mg PO DAILY Tobacco use date assessed: 07/04/23 Dental Screening Dental Screen Date: 07/04/23 Did you have a dental visit in the last 12 months?: Yes Did you have a dental problem in the last 6 months where you did not have access to dental care?: No Was dental information given to patient?: Patient has dentist HPI genital irritation/burning HPI Details Patient is a 32-year-old female came in today to be evaluated for possibility urinary tract infection or bacterial vaginosis Patient was seen late May and found to have 2+ leuk esterase in her urine she was treated with antibiotic She returned early June for similar symptoms and found to have 1+ leuk esterase she was again treated with antibiotic Patient returned 3rd time [facility] of this month with similar symptoms and also had vaginal swab taken which showed positive bacterial vaginosis She started having symptoms again so she called us but now she is on her monthly menstrual cycle Urine does not show any signs of inflammation other than 3+ blood because of her vaginal bleeding She said she tried to get in with her OBGYN but they could not see It has not easy for patient to travel all the way to this clinic She will let me know if her symptoms persist after she is done with the menstrual cycle and I will send in vaginal metronidazole cream [facility] Medical History Obesity Surgical History History of lumpectomy Family History Father HTN (hypertension) Asthma Mother No problems noted. Maternal Grandfather Cancer Other Substance use disorder Social History Housing: House Alcohol intake: never Patient Tobacco Use Status: Never used Tobacco e-Cigarette/Vaping Use: Never Used Second Hand Smoke Exposure: No Current occupational status: employed Cognitive needs: No Hearing needs: No Vision needs: No Questionnaire Thrive Questionnaire Date Thrive assessed: 05/20/22 AUDIT C Alcohol Use Questionnaire (AUDIT-C) 1. How often do you have a drink containing alcohol?: Never 3. How often do you have six or more drinks on one occasion?: Never Total Score: 0 Score Reviewed/Action Taken: Yes ALEX-7 AMB Questionnaire ALEX-7 Date ALEX - 7 assessed: 05/20/22 Source: Developed by Drs. Juvenal Suarez, Ofelia Fuentes, Simba Powers and colleagues, with an educational harika from [employer]. Review of Systems Const All systems reviewed & are unremarkable except as noted in HPI and below Physical exam (Primary Care) Vital Signs: Last Vital Signs Pulse 65 07/04/23 08:57 BP 126/84 07/04/23 08:57 Pulse Ox 96 07/04/23 08:57 Oxygen Delivery Method Room Air 07/04/23 08:57 BMI result Body Mass Index 37.1 Tobacco/Smoking Status: Tobacco use Status Tobacco use date assessed 07/04/23 07/04/23 09:03 Patient Tobacco Use Status Never used Tobacco 07/04/23 09:03 e-Cigarette/Vaping Use Never Used 07/04/23 09:03 Thrive Assessment: Date of Thrive Assessment Date Thrive assessed 05/20/22 07/04/23 09:03 Const General: no acute distress Orientation/consciousness: patient oriented x3 Eyes General: appearance normal, both eyes and all related structures Resp Effort & Inspection: normal respiratory effort and able to speak in complete sentences Auscultation: clear to auscultation bilaterally GI Other: Mild suprapubic discomfort Neuro General: patient oriented x3 Psych Mental Status: mental status grossly normal Results AMB Urinalysis, Automated UA Leukoctes 0 Yusuf/uL Last Edit by Igor Trinidad MA on 07/04/23 09:15 UA Nitrite Negative Last Edit by Igor Trinidad MA on 07/04/23 09:15 UA Urobilinogen 0.2 mg/dL Last Edit by Igor Trinidad MA on 07/04/23 09:15 UA Protein 0 mg/dL Last Edit by Igor Trinidad MA on 07/04/23 09:15 UA pH 6.0 Last Edit by Igor Trinidad MA on 07/04/23 09:15 UA Blood 200 Sreedhar/uL Last Edit by Igor Trinidad MA on 07/04/23 09:15 UA Specific [place] 1.000 Last Edit by Igor Trinidad MA on 07/04/23 09:1 5 UA Ketone Negative Last Edit by Igor Trinidad MA on 07/04/23 09:15 UA Bilirubin 0 mg/dL Last Edit by Igor Trinidad MA on 07/04/23 09:15 UA Glucose 0 mg/dL Last Edit by Igor Trinidad MA on 07/04/23 09:15 Assessment and Plan Assessment & Plan (1) Vaginal discomfort: Code(s): N94.9 - Unspecified condition associated with female genital organs and menstrual cycle Plan Patient is a 32-year-old female came in today to be evaluated for possibility urinary tract infection or bacterial vaginosis Patient was seen late May and found to have 2+ leuk esterase in her urine she was treated with antibiotic She returned early June for similar symptoms and found to have 1+ leuk esterase she was again treated with antibiotic Patient returned 3rd time med of this month with similar symptoms and also had vaginal swab taken which showed positive bacterial vaginosis She started having symptoms again so she called us but now she is on her monthly menstrual cycle Urine does not show any signs of inflammation other than 3+ blood because of her vaginal bleeding She said she tried to get in with her OBGYN but they could not see It has not easy for patient to travel all the way to this clinic She will let me know if her symptoms persist after she is done with the menstrual cycle and I will send in vaginal metronidazole cream Coding Level of Care Code Est Pt Level 3 (39859) Diagnoses Vaginal discomfort N94.9
== END 2023-07-04 10:14 | disposition home or self-care (01) ==
PROVIDERS: PCP Internal Medicine; Visit Provider Internal Medicine
DX: N94.9 Unspecified condition associated with female genital organs and menstrual cycle (principal)
CPT/HCPCS: 81003; 99213

== ENCOUNTER 2023-07-13 07:04 | Outpatient (AMB) | payer OTHER, SELFPAY ==
--- NOTE | 2023-07-13 08:31 | A.OFFPC_ITS ---
Intake Visit Reasons: Discuss Nurition~ [phone] Allergies cefaclor [From [facility]] Allergy (Intermediate, Verified 07/13/23 08:32) DIARRHEA Medication List - Last Reconciled 07/13/23 by Sarah Geiger MD acetaminophen (Tylenol) liquid cholecalciferol (vitamin D3) (Vitamin D3) 25 mcg PO DAILY clotrimazole-betamethasone 1-0.05 % appl topical levothyroxine (Synthroid) 50 mcg PO DAILY qhodkgxf-sli-rri C-herb no.124 (Airborne (ascorbic acid)) PO DAILY multivitamin (Daily Multi-Vitamin tablet) 1 tab PO DAILY at-[id number]-Emo-[id number] 334-1.7 mg (Airborne (ascorbate sodium)) tabs PO omeprazole 20 mg PO DAILY Tobacco use date assessed: 07/13/23 Dental Screening Dental Screen Date: 07/13/23 Did you have a dental visit in the last 12 months?: Yes Did you have a dental problem in the last 6 months where you did not have access to dental care?: No Was dental information given to patient?: Patient has dentist HPI Discuss Nurition~ [phone] HPI Details Patient is 32-year-old female this is a telemedicine conference We attempted we do which continued to shut down Most of the conversation was done through telephone Doximity Patient have binge eating disorder Currently she is seeing a therapist was recommended that she have a consultation with a dietitian. We talked about briefly what binge eating disorder is, emotional eating gratifying the sadness and so patient continued to seek foods for comfort. I have sent message to our family intervention specialist, they will reach out to patient and set up time to have a consultation. [facility] Medical History Obesity Surgical History History of lumpectomy Family History Father HTN (hypertension) Asthma Mother No problems noted. Maternal Grandfather Cancer Other Substance use disorder Social History Housing: House Alcohol intake: never Patient Tobacco Use Status: Never used Tobacco e-Cigarette/Vaping Use: Never Used Second Hand Smoke Exposure: No Current occupational status: employed Cognitive needs: No Hearing needs: No Vision needs: No Questionnaire Thrive Questionnaire Date Thrive assessed: 05/20/22 AUDIT C Alcohol Use Questionnaire (AUDIT-C) 1. How often do you have a drink containing alcohol?: Never 3. How often do you have six or more drinks on one occasion?: Never Total Score: 0 Score Reviewed/Action Taken: Yes ALEX-7 AMB Questionnaire ALEX-7 Date ALEX - 7 assessed: 05/20/22 Source: Developed by Drs. Juvenal Suarez, Ofelia Fuentes, Simba Powers and colleagues, with an educational harika from [employer]. Review of Systems Const Denies chills and Denies fever(s) ENT Denies epistaxis and Denies nasal discharge Card Denies chest pain Resp Denies chest congestion, Denies cough and Denies hemoptysis GI Denies diarrhea and Denies nausea Skin/Breast Denies rash Neuro Reports no additional complaints Psych Reports no additional complaints Endo Reports no additional complaints Physical exam (Primary Care) Tobacco/Smoking Status: Tobacco use Status Tobacco use date assessed 07/13/23 07/13/23 08:33 Patient Tobacco Use Status Never used Tobacco 07/13/23 08:33 e-Cigarette/Vaping Use Never Used 07/13/23 08:33 Thrive Assessment: Date of Thrive Assessment Date Thrive assessed 05/20/22 07/13/23 08:33 Telehealth Telehealth Telehealth Platform: [facility] Location of provider rendering services: practice address Location of patient: address on file Patient Identification confirmed using: Name, : Yes Telehealth method: video (attempted) Patient verbally consented to treatment: Yes Patient verbally consented to billing insurance company: Yes Patient informed of any privacy concerns related to visit: Yes Minutes spent on Phone/Video with Pt.: 16 Assessment and Plan Assessment & Plan (1) Binge eating disorder: Code(s): F50.81 - Binge eating disorder Plan Patient is 32-year-old female this is a telemedicine conference We attempted we do which continued to shut down Most of the conversation was done through telephone Doximity Patient have binge eating disorder Currently she is seeing a therapist was recommended that she have a consultation with a dietitian. We talked about briefly what binge eating disorder is, emotional eating gratifying the sadness and so patient continued to seek foods for comfort. I have sent message to our family intervention specialist, they will reach out to patient and set up time to have a consultation. Coding Level of Care Code Tele Est Pt Level 3 (14923) Diagnoses Binge eating disorder F50.81
== END 2023-07-13 11:39 | disposition home or self-care (01) ==
LOC: HO.HMGC 07:04
PROVIDERS: PCP Internal Medicine; Visit Provider Internal Medicine
DX: F50.81 Binge eating disorder (principal)
CPT/HCPCS: 99213

== ENCOUNTER 2023-09-06 09:59 | Emergency (ER) | payer OTHER, SELFPAY ==
[2023-09-06 10:01] VITALS: BP 144/87; PULSE 78; RESP 16; TEMP 36.3; O2SAT 98; BMI 36.1
--- NOTE | 2023-09-06 10:21 | ED.GENADULT ---
HPI - General Adult General Chief complaint: Ear Problems Stated complaint: ear infection ? Time Seen by Provider: 09/06/23 10:21 Source: patient Mode of arrival: ambulatory Limitations: no limitations History of Present Illness ED Provider: Lynda Rasmussen PA-C HPI narrative: Patient is a 33 year old assigned female at with a history of MDD presenting to the emergency department today with a headache and bilateral ear pain. Patient states that she was seen for the bilateral ear pain and told she had an ear infection and prescribed drops which she finished but did not totally resolve the issue and she continues to have a headache. Patient denies any dizziness, lightheadedness, abdominal pain, nausea, vomiting, fever, chills, blurry vision, double vision, loss of vision, chest pain, difficulty breathing, shortness of breath, back pain, night sweats, pain with urination, increased urinary frequency, increased urinary urgency, blood in her urine or stool, syncope or a near syncopal episode, recent trauma or falls, bowel incontinence, bladder incontinence, or any other complaints at this time. Onset (ago): day(s) Location: head, left (ear) and right (ear) Severity: mild Severity scale (1-10): 4 Quality: aching and dull Pain Consistency: constant Relieving factors: none Exacerbating factors: none Associated symptoms: denies other symptoms Treatments prior to arrival: other (antibiotic ear drops) Related Data Home Medications ?Medication ?Instructions ?Recorded ?Confirmed acetaminophen [Tylenol] PO PRN 02/07/20 07/13/23 multivitamin (Daily Multi-Vitamin 1 tab PO DAILY 02/07/20 07/13/23 tablet) qgeqepgm-kiv-fgl C-herb no.124 PO DAILY 11/13/20 07/13/23 [Airborne (ascorbic acid)] mv-min-vit C-ascorb tab PO 01/05/21 07/13/23 Mb-Jsc-Iqq-herb #124 334 mg-1.7 mg chewable tablet (Airborne (ascorbate sodium)) clotrimazole-betamethasone 1 appl topical 07/13/23 07/13/23 %-0.05 % topical cream Previous Rx's ?Medication ?Instructions ?Recorded cholecalciferol (vitamin D3) 25 25 mcg PO DAILY #90 tabs 04/03/23 mcg (1,000 unit) tablet (Vitamin D3) levothyroxine 50 mcg tablet 50 mcg PO DAILY #90 tabs 05/26/23 (Synthroid) omeprazole 20 mg capsule,delayed 20 mg PO DAILY #90 caps 05/26/23 release doxycycline hyclate 100 mg tablet 100 mg PO BID 7 days #14 tabs 09/06/23 Allergies Allergy/AdvReac Type Severity Reaction Status Date / Time cefaclor [From [facility]] Allergy Intermediate DIARRHEA Verified 09/06/23 10:02 Review of Systems Constitutional: Constitutional: Reports no additional constitutional complaints, Denies chills, Denies fever(s), Reports headache(s) and Denies night sweats Eyes: Eyes: Reports no additional eye complaints, Denies blurry vision, Denies change in vision, Denies diplopia, Denies eye discharge, Denies loss of vision and Denies eye pain ENT: Denies dizziness and Reports headache(s) Comments: bilateral ear pain Cardiovascular: Cardiovascular: Reports no additional cardiovascular complaints, Denies chest pain, Denies lightheadedness, Denies Loss of Consciousness and Denies dyspnea Respiratory: Respiratory: Reports no additional respiratory complaints and Denies dyspnea Gastrointestinal: Gastrointestinal: Reports no additional gastrointestinal complaints, Denies abdominal pain, Denies melena, Denies hematochezia, Denies change in bowel habits and Denies change in stool character Genitourinary: Genitourinary: Denies hematuria, Denies urinary frequency, Denies dysuria, Denies urinary incontinence, Denies urinary hesitancy and Denies urinary urgency Musculoskeletal: Musculoskeletal: Reports no additional musculoskeletal complaints, Denies numbness and Denies tingling Neurologic: Denies dizziness, Reports headache(s), Denies loss of vision, Denies numbness and Denies tingling Psychiatric: Psychiatric: Reports no additional psychiatric complaints Endocrine: Endocrine: Reports no additional endocrine complaints Hematologic/Lymphatic: Hematologic/Lymphatic: Reports no additional hematologic/lymphatic complaints Allergic/Immunologic: Allergic/Immunologic: Reports no additional allergic/immunologic complaints PMFSH Past Medical History Attestation statement: The following information was validated with the patient. Source: old records reviewed and nursing notes reviewed Medical History Obesity Surgical History History of lumpectomy Family History Family History Father HTN (hypertension) Asthma Mother No problems noted. Maternal Grandfather Cancer Other Substance use disorder Social History Social History Housing: House Alcohol intake: never Patient Tobacco Use Status: Never used Tobacco e-Cigarette/Vaping Use: Never Used Second Hand Smoke Exposure: No Advance Directives: No Advance Directives Information Provided: No Current occupational status: employed Cognitive needs: No Hearing needs: No Vision needs: No Physical Exam ED Vital Signs: Vital Signs - 24 hr 09/06/23 10:01 09/06/23 13:18 Temperature 97.4 F 97.4 F Pulse Rate 78 78 Respiratory Rate 16 16 Blood Pressure 144/87 H 144/87 H Pulse Oximetry 98 98 Oxygen Delivery Method Room Air Room Air BMI result Body Mass Index 36.1 Const General: cooperative, no acute distress, alert and awake Nutritional Appearance: well nourished Orientation/consciousness: patient oriented x3 Limitations: no limitations HENMT Head: Yes normal to inspection and Yes atraumatic Ears: hearing grossly normal bilaterally, external ears normal and TM's normal bilaterally General nose exam: Normal external nose present, no nasal discharge noted and no epistaxis Face and sinus: Yes normal facial exam, No abrasion and No laceration Mouth: Normal oral and palatal mucosa present, no drooling and no muffled voice Eyes General: appearance normal, both eyes and all related structures Periorbital: periorbital findings normal Eyelids: Yes eyelids normal Conjunctivae: conjunctivae normal Pupils: Equal, round and reactive pupils present EOM: EOMs intact bilaterally Neck Neck: Yes normal visual inspection, Yes full ROM and Yes no lymphadenopathy Chest Chest palpation & inspection: normal inspection of the chest Resp Effort & Inspection: normal respiratory effort and able to speak in complete sentences GI Inspection: Yes normal to inspection Neuro General: patient oriented x3 and moves all extremities Cranial nerves: Yes Equal, round and reactive pupils present Cognition (Neuro): normal cognition Extrem General: Yes normal to inspection, Yes full ROM and Yes capillary refill normal Psych Appearance: grossly normal Mental Status: mental status grossly normal Affect: normal affect Attitude: cooperative Thought process: Normal thought process present Thought content: Normal thought content present Insight: Good insight present (Psych) Medical Decision Making Medical Decision Making MDM Narrative: Patient is a 33 year old assigned female at with a history of MDD presenting to the emergency department today with bilateral ear pain and a headache. Patient's physical exam was unremarkable. Patient's COVID-19, influenza, and RSV tests were negative. I explained my physical exam findings as well as all test results to the patient. I answered all questions asked by the patient. Patient's clinical presentation is more consistent with an acute sinusitis rather than an otitis. I stressed the importance of the patient taking her medication as directed (either prescribed or as the over the counter packaging recommends). I stressed the importance of the patient following up with her primary care provider. I stressed the importance of the patient returning to the emergency department immediately if her symptoms were to worsen or if she were to develop any dizziness, shortness of breath, difficulty breathing, chest pain, blurry vision, loss of vision, nausea, vomiting, abdominal pain, fever, chills, back pain, or any other complaints. Patient verbalized agreement and understanding with this treatment plan and discharge. Differential Diagnosis Differential Diagnoses: The differential diagnosis associated with the presentation includes Sinusitis Otitis media Otitis externa Viral illness Admission/Observation Consideration of admission/observation: Escalation of care including admission/observation considered Patient would have been admitted to the hospital had her work up had any findings where hospital admission was appropriate and her clinical presentation warranted hospital admission. Lab Data [facility] Lab Attestation statement: I reviewed the patient's lab results. My interpretation of these results are in the [facility] Rationale portion of this note. Labs: Lab Results 09/06/23 Range/Units 11:23 Influenza Type A (PCR) NEGATIVE (Negative) Influenza Type B (PCR) NEGATIVE (Negative) RSV RNA Qual (PCR) NEGATIVE (Negative) SARS-CoV-2 RNA (RT-PCR) NEGATIVE (Negative) Prescription Management I considered prescription management with: Antibiotic (patient prescribed an antibiotic for sinusitis) Discharge Plan Discharge Clinical Impression: Sinusitis Patient Disposition: Home, Self-Care Instructions: Sinusitis (ED) Additional Instructions: Take your antibiotic as discussed. Do NOT subject yourself to sun exposure while on this. Follow up with your primary care provider. Return to the emergency department immediately if your symptoms worsen or if you develop any dizziness, shortness of breath, difficulty breathing, chest pain, blurry vision, loss of vision, nausea, vomiting, abdominal pain, fever, chills, back pain, or any other complaints. Prescriptions: New doxycycline hyclate 100 mg tablet 100 mg PO BID 7 Days Qty: 14 0RF No Action cholecalciferol (vitamin D3) [Vitamin D3] 25 mcg (1,000 unit) tablet 25 mcg PO DAILY Qty: 90 3RF multivitamin [Daily Multi-Vitamin] Tablet 1 tab PO DAILY acetaminophen PO PRN Rx Instructions: liquid nevypheb-tgh-wph C-herb no.124 [Airborne (ascorbic acid)] PO DAILY clotrimazole-betamethasone 1-0.05 % cream topical Airborne (ascorbate sodium) 334-1.7 mg tablet,chewable PO omeprazole 20 mg capsule,delayed release(DR/EC) 20 mg PO DAILY Qty: 90 1RF levothyroxine [Synthroid] 50 mcg tablet 50 mcg PO DAILY Qty: 90 3RF Referrals: Sarah Geiger MD [Primary Care Provider] - Stand Alone Forms: Work/School Release Interventions: ED Discharge Assessment Last Done: 09/06/23 13:18 Discharge Date/Time: 09/06/23 13:18 Print Language: Palestinian
[2023-09-06 12:55] LABS: Influenza A PCR NEGATIVE (Negative); Influenza B PCR NEGATIVE (Negative); Resp Syncy Virus RNA Qual PCR NEGATIVE (Negative); SARS COV2 PCR INHOUSE NEGATIVE (Negative)
[2023-09-06 13:18] VITALS: BP 144/87; PULSE 78; RESP 16; TEMP 36.3; O2SAT 98
== END 2023-09-06 13:18 | disposition home or self-care (01) ==
PROVIDERS: Physician Assistant Medical; Emergency Provider Emergency Medicine; PCP Internal Medicine
DX: J32.9 Chronic sinusitis, unspecified (principal); R51.9 Headache, unspecified; H92.03 Otalgia, bilateral; Z03.818 Encounter for observation for suspected exposure to other biological agents ruled out
CPT/HCPCS: 0241U; 99282; 99283

== ENCOUNTER 2023-09-19 13:09 | Outpatient (AMB) | payer OTHER, SELFPAY ==
--- NOTE | 2023-09-19 13:11 | MHC.PC.OV ---
Vital Signs 09/19/23 13:13 Height 5 ft 1 in Weight 187 lb BMI 35.3 BP 130/84 Blood Pressure Location Lt brachial Position Sitting Pulse 93 Pulse Source Pulse Oximeter Pulse Oximetry (%) 99 Oxygen Delivery Method Room Air Intake Visit Reasons: ED F/U EAR PAIN Allergies cefaclor [From [facility]] Allergy (Intermediate, Verified 09/19/23 13:11) DIARRHEA Medication List - Last Reconciled 09/19/23 by Sarah Geiger MD acetaminophen (Tylenol) liquid cholecalciferol (vitamin D3) (Vitamin D3) 25 mcg PO DAILY clotrimazole-betamethasone 1-0.05 % appl topical levothyroxine (Synthroid) 50 mcg PO DAILY aivenara-joj-vst C-herb no.124 (Airborne (ascorbic acid)) PO DAILY multivitamin (Daily Multi-Vitamin tablet) 1 tab PO DAILY ge-ba-nywR-kyrHj-Mri-[id number]-hc124 334-1.7 mg (Airborne (ascorbate sodium)) tabs PO omeprazole 20 mg PO DAILY Tobacco use date assessed: 09/19/23 Dental Screening Dental Screen Date: 07/13/23 HPI ED F/U EAR PAIN HPI Details Patient is a 33-year-old female came in today to be evaluated for her ears Patient says that she was seen at [facility] on August 13 because she was having pain in her ears both side She was diagnosed with ear infection and was given ear drops Patient did not get well and then September she ended up in emergency room and was told she has sinus infection and was treated with doxycycline She is feeling better but still feeling as if she is full in her ears There is no sinus pain no postnasal drip there is no sore throat no headache no dizziness no nausea vomiting diarrhea On examination her left ear light reflex is without any signs of infection or inflammation I am treating her with Zyrtec D once a day for 10 days to help open up eustachian tube [facility] Medical History Obesity Surgical History History of lumpectomy Family History Father HTN (hypertension) Asthma Mother No problems noted. Maternal Grandfather Cancer Other Substance use disorder Social History Housing: House Alcohol intake: never Patient Tobacco Use Status: Never used Tobacco e-Cigarette/Vaping Use: Never Used Second Hand Smoke Exposure: No Current occupational status: employed Cognitive needs: No Hearing needs: No Vision needs: No Questionnaire PHQ-9 Over the last 2 weeks, how often have you been bothered by any of the following problems? 94361 - PHQ-9 Billing: Patient declined-do not bill Source: Developed by Drs. Juvenal Suarez, Ofelia Fuentes, Simba Powers and colleagues, with an educational harika from [employer]. Thrive Questionnaire Date Thrive assessed: 09/18/23 I am a: Patient What is your living situation today?: I have a steady place to live Within the past 12 months, did the food you bought not last and you didn't have the money to get more?: Never true Within the past 12 months, did you worry whether your food would run out before you got money to buy more?: Never true Do you have trouble paying for medicines?: No Do you have trouble getting transportation to medical appointments?: No Do you have trouble paying your heating and electricity bill?: No Do you have trouble taking care of your child, family member or friend?: No Do you have trouble with day-to-day activities such as bathing, preparing meals, shopping, managing finances, etc.?: No Are you currently unemployed and looking for a job?: No Are you interested in more education?: Yes Please select the resources that you would like help with: Housing/Snf Currently or been in a relationship where the following occur: No concerns reported THRIVE Score: 0 AUDIT C Alcohol Use Questionnaire (AUDIT-C) 1. How often do you have a drink containing alcohol?: Never 3. How often do you have six or more drinks on one occasion?: Never Total Score: 0 ALEX-7 AMB Questionnaire ALEX-7 Date ALEX - 7 assessed: 09/19/23 Feeling nervous, anxious, or on edge: 1 = Several days Not being able to stop or control worryin = Several days Worrying too much about different things: 1 = Several days Trouble relaxin = Several days Being so restless that it is hard to sit still: 0 = Not at all Becoming easily annoyed or irritable: 1 = Several days Feeling afraid as if something awful might happen: 0 = Not at all Total ALEX-7 score (0-4 normal; 5-9 mild; 10-14 moderate; 15-21 severe): 5 Source: Developed by Drs. Juvenal Suarez, Ofelia Fuentes, Simba Powers and colleagues, with an educational harika from [employer]. ALEX-7 Assessment Billing ALEX-7 Assessment Tool: ALEX-7 Assessment 33482 Review of Systems Const Denies chills and Denies fever(s) ENT Denies epistaxis and Denies nasal discharge Card Denies chest pain Resp Denies chest congestion, Denies cough and Denies hemoptysis GI Denies diarrhea and Denies nausea Skin/Breast Denies rash Neuro Reports no additional complaints Psych Reports no additional complaints Endo Reports no additional complaints Physical exam (Primary Care) Vital Signs: Last Vital Signs Pulse 93 09/19/23 13:13 BP 130/84 09/19/23 13:13 Pulse Ox 99 09/19/23 13:13 Oxygen Delivery Method Room Air 09/19/23 13:13 BMI result Body Mass Index 35.3 Tobacco/Smoking Status: Tobacco use Status Tobacco use date assessed 09/19/23 09/19/23 13:16 Patient Tobacco Use Status Never used Tobacco 09/19/23 13:16 e-Cigarette/Vaping Use Never Used 09/19/23 13:16 Thrive Assessment: Date of Thrive Assessment Date Thrive assessed 09/18/23 09/19/23 13:16 Currently or been in a relationship where the following occur: No concerns reported Const General: cooperative, comfortable and no acute distress Orientation/consciousness: patient oriented x3 HENMT Other: Left ear light reflex dull compared to right, no sign of infection or inflammation Head: Yes normocephalic Eyes General: appearance normal, both eyes and all related structures Neck Neck: Yes supple Resp Effort & Inspection: normal respiratory effort, no cough and no stridor Skin General skin exam: turgor normal Neuro General: patient oriented x3, tone normal and moves all extremities Extrem Right lower extremity: no edema Left lower extremity: no edema Assessment and Plan Assessment & Plan (1) Unspecified Eustachian tube disorder, left ear: Code(s): H69.92 - Unspecified Eustachian tube disorder, left ear Plan Patient is a 33-year-old female came in today to be evaluated for her ears Patient says that she was seen at [facility] on August 13 because she was having pain in her ears both side She was diagnosed with ear infection and was given ear drops Patient did not get well and then September she ended up in emergency room and was told she has sinus infection and was treated with doxycycline She is feeling better but still feeling as if she is full in her ears There is no sinus pain no postnasal drip there is no sore throat no headache no dizziness no nausea vomiting diarrhea On examination her left ear light reflex is without any signs of infection or inflammation I am treating her with Zyrtec D once a day for 10 days to help open up eustachian tube Medications: New cetirizine-pseudoephedrine 5-120 mg ER (Zyrtec-D) 1 tab PO ONCE 14 tabs 0RF Coding Level of Care Code Est Pt Level 3 (72677) Diagnoses Unspecified Eustachian tube disorder, left ear H69.92 Additional Codes ALEX-7 Assessment Billing - ALEX-7 Assessment Tool: ALEX-7 Assessment 60049 ([id number])
[2023-09-19 13:13] VITALS: BP 130/84; PULSE 93; O2SAT 99; BMI 35.3
== END 2023-09-19 13:28 | disposition home or self-care (01) ==
LOC: HO.HMGC 13:09
PROVIDERS: PCP Internal Medicine; Visit Provider Internal Medicine
DX: H69.92 Unspecified Eustachian tube disorder, left ear (principal)
CPT/HCPCS: 99213